=== PATIENT | male | born 1980 | race Caucasian/White ===

== ENCOUNTER 2023-08-20 11:29 | Emergency (ER) | payer OTHER ==
[~2023-08-20] VITALS: Ht 167.6 cm; Wt 68.0 kg
[2023-08-20 11:53] VITALS: BP 110/74; PULSE 89; RESP 18; TEMP 98; O2SAT 98
[2023-08-20] MEDS ORDERED: LIDOCAINE MPF 1% 10 MG/ML VIAL INJ ONE (12:30)
[2023-08-20] MEDS ORDERED: IBUP-1842 PO (12:57)
[2023-08-20] MEDS ORDERED: IBUPROFEN 400 MG TAB ONE (12:59)
[2023-08-20] MEDS ORDERED: IBUPROFEN 400 MG TAB PO ONE (13:00)
[2023-08-20 13:07] VITALS: BP 110/74; PULSE 89; RESP 18; TEMP 98; O2SAT 98
== END 2023-08-20 13:07 | disposition home or self-care (01) ==
LOC: MED 11:29
DX: S91.311A Laceration without foreign body, right foot, initial encounter (principal); X58.XXXA Exposure to other specified factors, initial encounter; Y93.89 Activity, other specified; Y92.89 Other specified places as the place of occurrence of the external cause; Y99.8 Other external cause status
CPT/HCPCS: 12001; 90471; 90715; 99283; J2001

== ENCOUNTER 2023-11-29 19:00 | Emergency (ER) | payer OTHER ==
[~2023-11-29] VITALS: Ht 170.2 cm; Wt 70.3 kg
[~2023-11-29 19:00] MED LIST: IBUP-1842 PO
[2023-11-29 19:42] VITALS: BP 101/69; PULSE 67; RESP 20; TEMP 97.6; O2SAT 97
== END 2023-11-29 20:40 | disposition left against medical advice (07) ==
LOC: MED 19:00
DX: S61.411D Laceration without foreign body of right hand, subsequent encounter (principal); Z48.02 Encounter for removal of sutures; X58.XXXD Exposure to other specified factors, subsequent encounter
CPT/HCPCS: 99281

== ENCOUNTER 2023-11-30 08:03 | Emergency (ER) | payer OTHER ==
[~2023-11-30] VITALS: Ht 170.2 cm; Wt 70.3 kg
[2023-11-30 08:15] VITALS: BP 108/66; PULSE 73; TEMP 97.3
[2023-11-30 08:42] VITALS: BP 104/72; PULSE 78; RESP 20; TEMP 98; O2SAT 99
== END 2023-11-30 08:42 | disposition home or self-care (01) ==
LOC: MED 08:03
DX: S61.411D Laceration without foreign body of right hand, subsequent encounter (principal); Z48.02 Encounter for removal of sutures; Z79.899 Other long term (current) drug therapy; X58.XXXD Exposure to other specified factors, subsequent encounter
CPT/HCPCS: 99281